=== PATIENT | female | born 1990 | race American Indian/Alaskan Native ===

== ENCOUNTER 2018-08-12 04:10 | Emergency (ER) | payer SELFPAY ==
[2018-08-12 04:22] VITALS: BP 116/81
[2018-08-12 04:45] LABS: Bacteria,Urine 1+ /HPF (Negative); Bilirubin,Urine NEG (Negative); Blood,Urine NEG (Negative); Color,Urine Amber (Yellow); Mucus,Urine 3+ /HPF
[2018-08-12 04:47] LABS: HCG Qualitative,Urine Negative (Negative)
[2018-08-12 05:05] LABS: Hematocrit 46.6 % (30.3-42.9); Hemoglobin 16.1 gm/dl (10.1-14.3); Mean Corpuscular HGB Conc 35 % (30-34); Mean Corpuscular Volume 98 fl (79-97); Platelet Count 224 K/mm3 (140-440); Red Blood Count 4.75 M/mm3 (3.65-5.03); Red Cell Distribution Width 12.1 % (13.2-15.2)
[2018-08-12 05:20] LABS: BUN/Creatinine Ratio 22; Blood Urea Nitrogen 13 mg/dL (7-17); Calcium 10.4 mg/dL (8.4-10.2); Hemolysis Index 9
[2018-08-12] MEDS ORDERED: ZOFRAN IV ONE (05:29)
[2018-08-12] MEDS ORDERED: NACL 0.9% 1000 ML 1,000 ML IV ONE (05:29)
--- NOTE | 2018-08-12 06:04 | Emergency Department Report ---
ED N/V/D HPI - General Chief complaint: Abdominal Pain Stated complaint: VOMITTING DIARRHEA Time Seen by Provider: 08/12/18 05:59 Source: patient Mode of arrival: Ambulatory Limitations: No Limitations - History of Present Illness Initial comments: 28-year-old -[place] female presents to the emergency room for abdominal pain vomiting and diarrhea all which she states started about 11 PM on Sunday night. Patient reports that she had pizza about 6 PM and then at 11 PM she started having abdominal pain vomiting diarrhea. Patient denies any fever or chills. She denies any urinary symptoms such as dysuria urgency or frequency. Patient pushed currently takes no medications on a daily basis has no known drug allergies no past medical history. MD complaint: nausea, vomiting, diarrhea, abdominal pain -: During the night Time: 23:00 Description of Vomiting: food contents, watery Description of Diarrhea: water Associated Abdominal Pain: Yes Location: diffuse Radiation: none Severity: moderate Quality: cramping Consistency: intermittent Improves with: medication (Zofran that was given to her in fast track.) Worsens with: none Context: possible food poisoning Associated Symptoms: nausea/vomiting. denies: fever/chills, dysuria - Related Data Previous Rx's Medication Instructions Recorded Last Taken Type Ondansetron [Zofran Odt] 4 mg PO Q8HR #6 tab.rapdis 08/12/18 Unknown Rx Allergies Allergy/AdvReac Type Severity Reaction Status Date / Time No Known Allergies Allergy Unverified 08/12/18 04:24 ED Review of Systems ROS: Stated complaint: VOMITTING DIARRHEA Other details as noted in HPI Comment: All other systems reviewed and negative Constitutional: denies: chills, fever Eyes: denies: eye pain, eye discharge, vision change ENT: denies: ear pain, throat pain Respiratory: denies: cough, shortness of breath, wheezing Cardiovascular: denies: chest pain, palpitations Gastrointestinal: abdominal pain (diffuse), nausea, vomiting, diarrhea Genitourinary: denies: urgency, dysuria, discharge Musculoskeletal: denies: back pain, joint swelling, arthralgia Skin: denies: rash, lesions Neurological: denies: headache, weakness, paresthesias ED Past Medical Hx - Past Medical History Previous Medical History?: No - Surgical History Past Surgical History?: No - Medications Home Medications: Home Medications Medication Instructions Recorded Confirmed Last Taken Type Ondansetron [Zofran Odt] 4 mg PO Q8HR #6 tab.rapdis 08/12/18 Unknown Rx ED Physical Exam - General Limitations: No Limitations General appearance: alert, in no apparent distress - Head Head exam: Present: atraumatic, normocephalic - Eye Eye exam: Present: normal appearance - ENT ENT exam: Present: mucous membranes moist - Neck Neck exam: Present: normal inspection - Respiratory Respiratory exam: Present: normal lung sounds bilaterally. Absent: respiratory distress - Cardiovascular Cardiovascular Exam: Present: regular rate, normal rhythm. Absent: systolic murmur, diastolic murmur, rubs, gallop - GI/Abdominal GI/Abdominal exam: Present: soft, normal bowel sounds - Extremities Exam Extremities exam: Present: normal inspection - Back Exam Back exam: Present: normal inspection - Neurological Exam Neurological exam: Present: alert, oriented X3 - Psychiatric Psychiatric exam: Present: normal affect, normal mood - Skin Skin exam: Present: warm, dry, intact, normal color. Absent: rash ED Course Vital Signs 08/12/18 08/12/18 04:16 04:20 Temperature 97.8 F 97.8 F Pulse Rate 104 H 104 H Respiratory 18 18 Rate Blood Pressure 116/81 116/81 O2 Sat by Pulse 100 100 Oximetry - Reevaluation(s) Reevaluation #1: 08/12/18 06:03 Patient reports she feels much better after having Zofran fluids and has been able to hold down a cup of ice water. ED Medical Decision Making - Lab Data Result diagrams: 08/12/18 04:50 08/12/18 04:50 - Medical Decision Making Patient has been evaluated by this provider in fast track. CBC CMP urinalysis and urine test has been ordered. IV fluids and IV Zofran has been given. Patient started by mouth challenge which she has held down 1 cup of ice water. Critical care attestation.: If time is entered above; I have spent that time in minutes in the direct care of this critically ill patient, excluding procedure time. ED Disposition Clinical Impression: Nausea vomiting and diarrhea Disposition: DC-01 TO HOME OR SELFCARE Is pt being admited?: No Does the pt Need Aspirin: No Condition: Stable Instructions: Abdominal Pain (ED), Acute Nausea and Vomiting (ED) Additional Instructions: If you continue to have nausea and vomiting please take Zofran which has been described to you. Please increase her water intake than she as tolerated. Prescriptions: Ondansetron [Zofran Odt] 4 mg PO Q8HR #6 tab.rapdis Referrals: [facility] [Provider Group] - 3-5 Days Forms: Work/School Release Form(ED), Accompanied Note
[2018-08-12 06:25] LABS: Band Neutrophils # (Manual) 1.4 K/mm3; Basophils % (Manual) 0 % (0.0-1.8); Eosinophils % (Manual) 0 % (0.0-4.3); Total Cells Counted 100
[2018-08-12 06:26] LABS: Large Platelets Rare; Platelet Estimate Consistent w Auto; RBC Morphology Normal
== END 2018-08-12 06:48 | disposition home or self-care (01) ==
LOC: ED 04:10
DX: R11.2 Nausea with vomiting, unspecified (principal); R19.7 Diarrhea, unspecified; R10.84 Generalized abdominal pain
CPT/HCPCS: 36415; 80048; 81001; 81025; 85007; 85025; 96361; 96374; 99283; J2405; J7030